=== PATIENT | male | born 1950 | race Two or more races ===

== ENCOUNTER 2021-09-11 03:58 | Inpatient (IN) | payer OTHER, MEDICAID ==
[~2021-09-11] VITALS: Ht 165.1 cm; Wt 65.0 kg
[2021-09-11] MEDS ORDERED: ONDANSETRON HCL 4 MG/2 ML VIAL IV ONE ×2 (04:45→08:00)
[2021-09-11] MEDS ORDERED: MORPHINE SULFATE INJECTION 2 MG/ML SYRG IV ONE (04:45)
[2021-09-11] MEDS ORDERED: cefTRIAXone 1GM/50ML D5W 50 ML IV ONE (08:00)
[2021-09-11] MEDS ORDERED: metroNIDAZOLE 500MG/100ML 100 ML IV ONE (08:00)
[2021-09-11] MEDS ORDERED: SODIUM CHLORIDE 0.9% 1,000 ML IV ONE ×2 (08:00)
[2021-09-11] MEDS ORDERED: HYDROmorphone HCL 2 MG/ML VL IV ONE (08:00)
[2021-09-11 08:06] LABS: Eosinophils # (auto) 0 10 ^3/uL (0-0.8); Monocytes # (auto) 1.4 10 ^3/uL (0-1.3); Nucleated Red Blood Cells % 0.1 %; Red Cell Distribution Width 14.3 % (11.8-14.3); White Blood Cell 20.1 10^3/uL (4.4-10.8)
[2021-09-11 08:08] LABS: Basophils # (auto) 0 10 ^3/uL (0-0.2); Basophils % (auto) 0.2 % (0.0-2.0); Eosinophils % (auto) 0.1 % (0.0-7.0); Hematocrit 54.2 % (41.0-53.0); Hemoglobin 18.1 g/dL (13.5-17.5); Lymphocytes # (auto) 0.9 10 ^3/uL (0.4-5.4); Lymphocytes % (auto) 4.3 % (10.0-50.0); Mean Corpuscular Hemoglobin 30.6 pg (28.0-32.0); Mean Corpuscular Hgb Conc. 33.4 g/dL (32.0-36.0); Mean Corpuscular Volume 91.5 fL (80.0-100.0); Monocytes % (auto) 6.9 % (0.0-12.0); Neutrophils # (auto) 17.8 10 ^3/uL (1.6-8.6); Neutrophils % (auto) 88.5 % (37.0-80.0); Red Blood Cells 5.92 10^6/uL (4.5-5.90)
[2021-09-11 08:18] LABS: Albumin 3.5 g/dL (3.4-5.0); Magnesium 1.9 mg/dL (1.6-2.6); Potassium 4.4 mmol/L (3.5-5.1)
[2021-09-11 08:20] LABS: Bilirubin, Total 0.8 mg/dL (0.2-1.0); Total Protein 7.7 g/dL (6.4-8.2)
[2021-09-11 08:55] LABS: BUN/Creatinine Ratio 20.5
[2021-09-11] MEDS ORDERED: MORPHINE SULFATE INJECTION 2 MG/ML SYRG IV PRN ×2 (09:30→10:30)
[2021-09-11] MEDS ORDERED: NITROGLYCERIN 0.4 MG SL TAB SL PRN ×2 (09:30→10:30)
[2021-09-11] MEDS ORDERED: LACTATED RINGER'S 2,000 ML IV ONE (09:30)
[2021-09-11] MEDS ORDERED: PANTOPRAZOLE 40 MG/10 ML VIAL INJ IV ONE (09:30)
[2021-09-11] MEDS ORDERED: DEXTROSE (50%) 50ML SYRG IV PRN (09:30)
[2021-09-11 09:45] LABS: Lactic Acid w/Reflex 6.5 mmol/L (0.4-2.0)
[2021-09-11] MEDS: SODIUM CHLORIDE 0.9% 1,000 ML IV SCH ×2 (09:50→22:31)
[2021-09-11] MEDS: PANTOPRAZOLE 40 MG/10 ML VIAL INJ IV SCH (10:00)
[2021-09-11] MEDS ORDERED: DOCUSATE SOD 100 MG CAP PO PRN (10:30)
[2021-09-11] MEDS ORDERED: TEMAZEPAM 15 MG CAP PO PRN (10:30)
[2021-09-11] MEDS ORDERED: ACETAMINOPHEN 325 MG TAB PO PRN (10:30)
[2021-09-11] MEDS ORDERED: MEROPENEM 1GM IVPB 100 ML IV ONE (10:30)
[2021-09-11] MEDS ORDERED: LABETALOL HCL 5 MG/ML 4ML SYRINGE IV PRN (10:30)
[2021-09-11] MEDS ORDERED: LABETALOL HCL 5 MG/ML 4ML SYRINGE IV ONE (10:30)
[2021-09-11] MEDS ORDERED: ONDANSETRON HCL 4 MG/2 ML VIAL IV PRN (10:30)
[2021-09-11] MEDS ORDERED: HYDROcodone-ACET 5/325MG TAB PO PRN (10:30)
[2021-09-11] MEDS ORDERED: hydrALAZINE HCL 20 MG/ML VL IV PRN (10:45)
[2021-09-11] MEDS: InsuLIN REG 1unit/0.01ml Soln (100units/ml) SC SCH ×2 (11:52→17:39)
[2021-09-11] MEDS: ACCU-CHEK COMFORT CURVE STRIP VI SCH ×2 (12:05→17:39)
[2021-09-11 12:26] LABS: Magnesium 2.2 mg/dL (1.6-2.6)
[2021-09-11 12:29] LABS: Phosphorus 5.6 mg/dL (2.5-4.90)
[2021-09-11] MEDS: MORPHINE SULFATE INJECTION 2 MG/ML SYRG IV PRN ×2 (15:57→22:33)
[2021-09-11 17:00] VITALS: BP 148/87
[2021-09-11] MEDS ORDERED: LEVOTAB51 PO (18:16)
[2021-09-11] MEDS ORDERED: TAMS0.4C36 PO (18:16)
[2021-09-11] MEDS ORDERED: LISI-285 PO (18:16)
[2021-09-11] MEDS ORDERED: METF-370 PO (18:16)
[2021-09-11 22:00] VITALS: BP 144/98
[2021-09-11] MEDS ORDERED: ATORVASTATIN 20 MG TAB PO SCH (22:00)
[2021-09-11] MEDS: MEROPENEM 1GM IVPB 100 ML IV SCH (22:31)
[2021-09-12] MEDS: ACCU-CHEK COMFORT CURVE STRIP VI SCH ×4 (00:33→17:54)
[2021-09-12] MEDS: InsuLIN REG 1unit/0.01ml Soln (100units/ml) SC SCH ×4 (00:34→17:54)
[2021-09-12] MEDS: MORPHINE SULFATE INJECTION 2 MG/ML SYRG IV PRN ×2 (04:34→12:33)
[2021-09-12 05:15] VITALS: BP 125/84
[2021-09-12 07:34] LABS: INR 1.1 (0.9-1.15); Partial Thromboplastin Time 29.6 sec (23.6-33.0)
[2021-09-12 07:39] LABS: Albumin 2.9 g/dL (3.4-5.0); Calcium 8.9 mg/dL (8.5-10.1); Magnesium 3.2 mg/dL (1.6-2.6); Potassium 3.9 mmol/L (3.5-5.1)
[2021-09-12 07:41] LABS: Basophils # (auto) 0 10 ^3/uL (0-0.2); Basophils % (auto) 0.1 % (0.0-2.0); Eosinophils # (auto) 0 10 ^3/uL (0-0.8); Hematocrit 51.4 % (41.0-53.0); Hemoglobin 17.4 g/dL (13.5-17.5); Lymphocytes # (auto) 0.9 10 ^3/uL (0.4-5.4); Lymphocytes % (auto) 4.1 % (10.0-50.0); Mean Corpuscular Hemoglobin 30.8 pg (28.0-32.0); Mean Corpuscular Hgb Conc. 33.9 g/dL (32.0-36.0); Mean Corpuscular Volume 90.8 fL (80.0-100.0); Monocytes # (auto) 1.6 10 ^3/uL (0-1.3); Monocytes % (auto) 7.4 % (0.0-12.0); Neutrophils # (auto) 18.9 10 ^3/uL (1.6-8.6); Neutrophils % (auto) 88.4 % (37.0-80.0); Nucleated Red Blood Cells % 0.1 %; Red Blood Cells 5.66 10^6/uL (4.5-5.90); Red Cell Distribution Width 14.3 % (11.8-14.3); White Blood Cell 21.3 10^3/uL (4.4-10.8)
[2021-09-12 07:51] LABS: BUN/Creatinine Ratio 30.5; Bilirubin, Total 1.1 mg/dL (0.2-1.0); Phosphorus 2.4 mg/dL (2.5-4.90); Total Protein 6.9 g/dL (6.4-8.2); Uric Acid 8.2 mg/dL (3.5-7.2)
[2021-09-12 09:00] VITALS: BP 140/90
[2021-09-12] MEDS: ENOXAPARIN SOD 30 MG/0.3 ML SYRINGE SC SCH (10:06)
[2021-09-12] MEDS: PANTOPRAZOLE 40 MG/10 ML VIAL INJ IV SCH (10:06)
[2021-09-12] MEDS: MEROPENEM 1GM IVPB 100 ML IV SCH (10:40)
[2021-09-12] MEDS: SODIUM CHLORIDE 0.9% 1,000 ML IV SCH ×2 (12:10→17:15)
[2021-09-12 13:00] VITALS: BP 139/89
[2021-09-12 14:34] LABS: Urine Bacteria NONE SEEN /hpf (None Seen); Urine Blood TRACE /uL (Negative); Urine Specific Gravity 1.026 (1.001-1.035); Urine WBC 2 /hpf (0 - 3)
[2021-09-12 14:57] LABS: Alcohol, Urine < 3.0 mg/dL (0-10); Amphetamine Screen, Urine NEGATIVE (NEGATIVE); Barbiturate Scree,Urine NEGATIVE (NEGATIVE); Benzodiazephine Screen, Urine NEGATIVE (NEGATIVE); Cannabinoid Screen, Urine NEGATIVE (NEGATIVE); Cocaine Screen, Urine NEGATIVE (NEGATIVE); Opiate Scree,Urine POSITIVE (NEGATIVE); Phencyclidine Screen, Urine NEGATIVE (NEGATIVE)
[2021-09-12 17:00] VITALS: BP 151/92
[2021-09-12 22:00] VITALS: BP 158/94
[2021-09-12] MEDS: metroNIDAZOLE 500MG/100ML 100 ML IV SCH (22:10)
[2021-09-13] MEDS: SODIUM CHLORIDE 0.9% 1,000 ML IV SCH ×3 (01:35→11:25)
[2021-09-13] MEDS: InsuLIN REG 1unit/0.01ml Soln (100units/ml) SC SCH ×4 (02:24→17:35)
[2021-09-13 05:00] VITALS: BP 153/109
[2021-09-13] MEDS: ACCU-CHEK COMFORT CURVE STRIP VI SCH ×4 (06:00→17:35)
[2021-09-13] MEDS: metroNIDAZOLE 500MG/100ML 100 ML IV SCH ×3 (07:06→22:23)
[2021-09-13 09:00] VITALS: BP 149/97
[2021-09-13] MEDS: PANTOPRAZOLE 40 MG/10 ML VIAL INJ IV SCH (10:06)
[2021-09-13] MEDS: levoFLOXacin 500MG 100 ML IV SCH (10:06)
[2021-09-13] MEDS: ENOXAPARIN SOD 30 MG/0.3 ML SYRINGE SC SCH (10:07)
[2021-09-13 11:03] LABS: Basophils # (auto) 0 10 ^3/uL (0-0.2); Basophils % (auto) 0.2 % (0.0-2.0); Eosinophils # (auto) 0 10 ^3/uL (0-0.8); Hematocrit 41.2 % (41.0-53.0); Hemoglobin 13.9 g/dL (13.5-17.5); Lymphocytes # (auto) 0.9 10 ^3/uL (0.4-5.4); Mean Corpuscular Hemoglobin 30.7 pg (28.0-32.0); Mean Corpuscular Hgb Conc. 33.9 g/dL (32.0-36.0); Mean Corpuscular Volume 90.6 fL (80.0-100.0); Monocytes # (auto) 1.3 10 ^3/uL (0-1.3); Monocytes % (auto) 8.5 % (0.0-12.0); Neutrophils # (auto) 12.8 10 ^3/uL (1.6-8.6); Neutrophils % (auto) 85.3 % (37.0-80.0); Red Blood Cells 4.55 10^6/uL (4.5-5.90); Red Cell Distribution Width 14.5 % (11.8-14.3)
[2021-09-13 13:00] VITALS: BP 150/91
[2021-09-13 16:44] VITALS: BP 143/92
[2021-09-13 22:00] VITALS: BP 156/87
[2021-09-14] MEDS: InsuLIN REG 1unit/0.01ml Soln (100units/ml) SC SCH ×5 (00:53→23:41)
[2021-09-14] MEDS: ACCU-CHEK COMFORT CURVE STRIP VI SCH ×5 (01:02→23:38)
[2021-09-14] MEDS: SODIUM CHLORIDE 0.9% 1,000 ML IV SCH ×2 (02:35→06:43)
[2021-09-14] MEDS: metroNIDAZOLE 500MG/100ML 100 ML IV SCH ×3 (06:00→22:03)
[2021-09-14] MEDS ORDERED: LABETALOL HCL 5 MG/ML ML 20ML VIAL IV ONE (08:45)
[2021-09-14 09:06] VITALS: BP 152/85
[2021-09-14] MEDS: levoFLOXacin 500MG 100 ML IV SCH (09:38)
[2021-09-14] MEDS: ENOXAPARIN SOD 30 MG/0.3 ML SYRINGE SC SCH (09:38)
[2021-09-14] MEDS: PANTOPRAZOLE 40 MG/10 ML VIAL INJ IV SCH (09:38)
[2021-09-14 11:59] LABS: Basophils # (auto) 0 10 ^3/uL (0-0.2); Basophils % (auto) 0.1 % (0.0-2.0); Eosinophils # (auto) 0 10 ^3/uL (0-0.8); Eosinophils % (auto) 0.1 % (0.0-7.0); Hematocrit 37.3 % (41.0-53.0); Hemoglobin 12.8 g/dL (13.5-17.5); Lymphocytes # (auto) 0.7 10 ^3/uL (0.4-5.4); Lymphocytes % (auto) 5.5 % (10.0-50.0); Mean Corpuscular Hemoglobin 30.9 pg (28.0-32.0); Mean Corpuscular Hgb Conc. 34.3 g/dL (32.0-36.0); Monocytes % (auto) 7.7 % (0.0-12.0); Neutrophils # (auto) 10.8 10 ^3/uL (1.6-8.6); Neutrophils % (auto) 86.6 % (37.0-80.0); Red Blood Cells 4.14 10^6/uL (4.5-5.90); Red Cell Distribution Width 14.4 % (11.8-14.3); White Blood Cell 12.5 10^3/uL (4.4-10.8)
[2021-09-14 12:32] LABS: Albumin 2.2 g/dL (3.4-5.0); Calcium 8.2 mg/dL (8.5-10.1); Potassium 3.5 mmol/L (3.5-5.1)
[2021-09-14 12:36] LABS: BUN/Creatinine Ratio 22.6; Bilirubin, Total 0.9 mg/dL (0.2-1.0); Total Protein 5.7 g/dL (6.4-8.2)
[2021-09-14 12:41] LABS: Amylase 182 U/L (25-115); Lipase 232 U/L (73-393)
[2021-09-14 13:00] VITALS: BP 135/77
[2021-09-14 17:20] VITALS: BP 144/76
[2021-09-14 22:00] VITALS: BP 137/72
[2021-09-14] MEDS: LABETALOL HCL 200 MG TAB PO SCH (22:04)
[2021-09-14] MEDS: INSULIN LANTUS (GLARGINE) 1 /0.01ml (100units/ml) SC SCH (22:05)
[2021-09-15 05:00] VITALS: BP 131/69
[2021-09-15] MEDS: ACCU-CHEK COMFORT CURVE STRIP VI SCH ×3 (05:54→18:00)
[2021-09-15] MEDS: metroNIDAZOLE 500MG/100ML 100 ML IV SCH ×3 (06:06→22:28)
[2021-09-15] MEDS: InsuLIN REG 1unit/0.01ml Soln (100units/ml) SC SCH ×3 (06:31→18:00)
[2021-09-15 09:00] VITALS: BP_SYST 118; BP_SYST 124; BP_DIAS 73; BP_DIAS 78
[2021-09-15] MEDS: LABETALOL HCL 200 MG TAB PO SCH ×2 (09:50→22:30)
[2021-09-15] MEDS: levoFLOXacin 500MG 100 ML IV SCH (09:50)
[2021-09-15] MEDS: PANTOPRAZOLE 40 MG/10 ML VIAL INJ IV SCH (09:50)
[2021-09-15] MEDS: LISINOPRIL 5 MG TAB PO SCH (09:50)
[2021-09-15] MEDS: ENOXAPARIN SOD 30 MG/0.3 ML SYRINGE SC SCH (09:51)
[2021-09-15] MEDS: INSULIN LANTUS (GLARGINE) 1 /0.01ml (100units/ml) SC SCH ×2 (09:52→22:42)
[2021-09-15 13:00] VITALS: BP 129/60
[2021-09-15 17:00] VITALS: BP 132/81
[2021-09-16] MEDS: ACCU-CHEK COMFORT CURVE STRIP VI SCH ×5 (00:21→23:53)
[2021-09-16 05:54] VITALS: BP 140/69
[2021-09-16] MEDS: metroNIDAZOLE 500MG/100ML 100 ML IV SCH ×3 (05:58→21:18)
[2021-09-16] MEDS: InsuLIN REG 1unit/0.01ml Soln (100units/ml) SC SCH ×5 (05:58→23:53)
[2021-09-16 06:14] LABS: Amylase 146 U/L (25-115); Lipase 216 U/L (73-393)
[2021-09-16 09:00] VITALS: BP 128/91
[2021-09-16] MEDS ORDERED: ENOXAPARIN SOD 40 MG/0.4 ML SYRINGE SC SCH (10:00)
[2021-09-16] MEDS: LISINOPRIL 5 MG TAB PO SCH (10:20)
[2021-09-16] MEDS: levoFLOXacin 500MG 100 ML IV SCH (10:20)
[2021-09-16] MEDS: LABETALOL HCL 200 MG TAB PO SCH (10:21)
[2021-09-16] MEDS: INSULIN LANTUS (GLARGINE) 1 /0.01ml (100units/ml) SC SCH (10:23)
[2021-09-16] MEDS: PANTOPRAZOLE 40 MG/10 ML VIAL INJ IV SCH ×2 (10:25→21:18)
[2021-09-16 11:08] LABS: Basophils # (auto) 0 10 ^3/uL (0-0.2); Basophils % (auto) 0.2 % (0.0-2.0); Eosinophils # (auto) 0.3 10 ^3/uL (0-0.8); Hematocrit 36.4 % (41.0-53.0); Hemoglobin 12.2 g/dL (13.5-17.5); Lymphocytes # (auto) 1.3 10 ^3/uL (0.4-5.4); Lymphocytes % (auto) 8.7 % (10.0-50.0); Mean Corpuscular Hemoglobin 30.5 pg (28.0-32.0); Mean Corpuscular Hgb Conc. 33.5 g/dL (32.0-36.0); Mean Corpuscular Volume 91.2 fL (80.0-100.0); Monocytes # (auto) 2.1 10 ^3/uL (0-1.3); Monocytes % (auto) 13.7 % (0.0-12.0); Neutrophils # (auto) 11.4 10 ^3/uL (1.6-8.6); Neutrophils % (auto) 75.4 % (37.0-80.0); Nucleated Red Blood Cells % 0.3 %; Red Blood Cells 3.99 10^6/uL (4.5-5.90); Red Cell Distribution Width 14.1 % (11.8-14.3); White Blood Cell 15.1 10^3/uL (4.4-10.8)
[2021-09-16 11:49] LABS: BUN/Creatinine Ratio 20.7; Calcium 8.3 mg/dL (8.5-10.1)
[2021-09-16 11:54] LABS: Potassium 3.3 mmol/L (3.5-5.1)
[2021-09-16 13:00] VITALS: BP 140/76
[2021-09-16 17:00] VITALS: BP 136/73
[2021-09-16 20:00] VITALS: BP 136/71
[2021-09-16] MEDS ORDERED: ALBUTEROL SULF 2.5 MG/0.5ML(0.5%) NEB SOLN NEB PRN (20:45)
[2021-09-16] MEDS ORDERED: IPRATROPIUM BROM 0.5 MG/2.5ML INH SOL NEB PRN (20:45)
[2021-09-16] MEDS: SUCRALFATE 1 GM/10 ML ORAL SUSP PO SCH (21:18)
[2021-09-17 01:01] LABS: Hematocrit 35.2 % (41.0-53.0); Hemoglobin 11.8 g/dL (13.5-17.5)
[2021-09-17] MEDS: metroNIDAZOLE 500MG/100ML 100 ML IV SCH ×3 (05:01→21:28)
[2021-09-17 05:16] VITALS: BP 145/74
[2021-09-17] MEDS: ACCU-CHEK COMFORT CURVE STRIP VI SCH ×4 (05:27→23:39)
[2021-09-17] MEDS: InsuLIN REG 1unit/0.01ml Soln (100units/ml) SC SCH ×4 (05:28→23:45)
[2021-09-17 06:02] LABS: Hematocrit 34.2 % (41.0-53.0); Hemoglobin 11.7 g/dL (13.5-17.5)
[2021-09-17 06:25] LABS: Potassium 3.5 mmol/L (3.5-5.1)
[2021-09-17 06:27] LABS: BUN/Creatinine Ratio 20.3
[2021-09-17] MEDS: SUCRALFATE 1 GM/10 ML ORAL SUSP PO SCH ×4 (06:31→21:28)
[2021-09-17 08:00] VITALS: BP 136/72
[2021-09-17] MEDS: levoFLOXacin 500MG 100 ML IV SCH (08:28)
[2021-09-17] MEDS: POTASSIUM EFFERVESENT TAB 25 MEQ PO SCH (08:29)
[2021-09-17] MEDS: PANTOPRAZOLE 40 MG/10 ML VIAL INJ IV SCH ×2 (08:29→21:29)
[2021-09-17] MEDS: LISINOPRIL 5 MG TAB PO SCH (08:34)
[2021-09-17 12:00] VITALS: BP 128/68
[2021-09-17 13:56] LABS: Hemoglobin 12.6 g/dL (13.5-17.5)
[2021-09-17] MEDS ORDERED: FUROSEMIDE 20 MG/2 ML VIAL IV ONE (14:45)
[2021-09-17 20:00] VITALS: BP 139/72
[2021-09-18 02:34] LABS: INR 1.18 (0.9-1.15); Partial Thromboplastin Time 30.7 sec (23.6-33.0)
[2021-09-18 02:40] LABS: Albumin 2.2 g/dL (3.4-5.0); Calcium 8.2 mg/dL (8.5-10.1); Potassium 3.7 mmol/L (3.5-5.1)
[2021-09-18 02:44] LABS: Bilirubin, Total 0.6 mg/dL (0.2-1.0); Total Protein 5.8 g/dL (6.4-8.2)
[2021-09-18 05:02] VITALS: BP 150/77
[2021-09-18] MEDS: metroNIDAZOLE 500MG/100ML 100 ML IV SCH (05:20)
[2021-09-18] MEDS: ACCU-CHEK COMFORT CURVE STRIP VI SCH ×3 (05:23→17:33)
[2021-09-18] MEDS: SUCRALFATE 1 GM/10 ML ORAL SUSP PO SCH ×4 (05:23→21:18)
[2021-09-18] MEDS: InsuLIN REG 1unit/0.01ml Soln (100units/ml) SC SCH ×3 (05:23→17:42)
[2021-09-18 05:41] LABS: BUN/Creatinine Ratio 15.4; Calcium 8.1 mg/dL (8.5-10.1); Potassium 3.6 mmol/L (3.5-5.1)
[2021-09-18 08:00] VITALS: BP 150/71
[2021-09-18] MEDS ORDERED: LIDOCAINE VISCOUS 2% 15ML UD ONE (08:10)
[2021-09-18] MEDS ORDERED: SODIUM CHLORIDE LOCK 10 ML ONE (08:10)
[2021-09-18] MEDS ORDERED: diphenhdrAMINE HCL 50 MG/1 ML VL ONE (08:11)
[2021-09-18] MEDS ORDERED: fentaNYL CITRATE 100 MCG/2 ML VL ONE (08:11)
[2021-09-18] MEDS ORDERED: MIDAZOLAM HCL 5 MG/ML-1ML VIAL ONE (08:11)
[2021-09-18] MEDS: PANTOPRAZOLE 40 MG/10 ML VIAL INJ IV SCH ×2 (08:22→21:18)
[2021-09-18] MEDS: LISINOPRIL 5 MG TAB PO SCH (08:22)
[2021-09-18] MEDS: POTASSIUM EFFERVESENT TAB 25 MEQ PO SCH (08:22)
[2021-09-18] MEDS: levoFLOXacin 500MG 100 ML IV SCH (08:23)
[2021-09-18 12:00] VITALS: BP 132/76
[2021-09-18] MEDS: FLUCONAZOLE 200MG/100ML 100 ML IV SCH ×3 (14:03→17:30)
[2021-09-18] MEDS: NYSTATIN (MOUTH-THROAT) 500,000 UNITS/5 ML SUSP MT SCH ×3 (14:03→21:19)
[2021-09-18 16:00] VITALS: BP 136/75
[2021-09-18] MEDS ORDERED: IOHEXOL 350 MG/ML 100ML IJ ONE (16:43)
[2021-09-18 22:04] VITALS: BP 106/70
[2021-09-19] MEDS: ACCU-CHEK COMFORT CURVE STRIP VI SCH ×4 (00:01→17:38)
[2021-09-19] MEDS: InsuLIN REG 1unit/0.01ml Soln (100units/ml) SC SCH ×4 (00:03→17:49)
[2021-09-19 05:00] VITALS: BP 109/68
[2021-09-19] MEDS: NYSTATIN (MOUTH-THROAT) 500,000 UNITS/5 ML SUSP MT SCH ×4 (05:41→22:00)
[2021-09-19] MEDS: SUCRALFATE 1 GM/10 ML ORAL SUSP PO SCH ×4 (05:41→22:00)
[2021-09-19 07:10] LABS: BUN/Creatinine Ratio 11.1; Calcium 8.2 mg/dL (8.5-10.1); Potassium 3.8 mmol/L (3.5-5.1)
[2021-09-19 09:00] VITALS: BP 122/82
[2021-09-19] MEDS ORDERED: SODIUM CHLORIDE 0.9% 1,000 ML IV ONE (09:00)
[2021-09-19] MEDS: PANTOPRAZOLE 40 MG/10 ML VIAL INJ IV SCH ×2 (09:53→22:00)
[2021-09-19] MEDS: LISINOPRIL 5 MG TAB PO SCH (09:54)
[2021-09-19] MEDS ORDERED: GADOTERATE MEG 10 MMOL/20ml INJ (0.5MMOL/ml) IV ONE (09:57)
[2021-09-19 12:36] VITALS: BP 138/84
[2021-09-19] MEDS ORDERED: PPN PER PHARMACY 0 ML IV SCH (14:00)
[2021-09-19 14:57] LABS: Albumin 2.3 g/dL (3.4-5.0); Bilirubin, Direct 0.2 mg/dL (0-0.2)
[2021-09-19 14:59] LABS: Bilirubin, Total 0.5 mg/dL (0.2-1.0); Total Protein 6.5 g/dL (6.4-8.2)
[2021-09-19 17:01] VITALS: BP 125/60
[2021-09-19] MEDS ORDERED: AMINO ACID INFUSION IN D10W 1,000 ML IV NR (20:00)
[2021-09-19 22:00] VITALS: BP 137/71
[2021-09-20] MEDS ORDERED: DEXTROSE (50%) 50ML SYRG IV SCH
[2021-09-20 05:00] VITALS: BP 123/71
[2021-09-20] MEDS: ACCU-CHEK COMFORT CURVE STRIP VI SCH ×3 (06:00→13:04)
[2021-09-20] MEDS: NYSTATIN (MOUTH-THROAT) 500,000 UNITS/5 ML SUSP MT SCH (06:00)
[2021-09-20] MEDS: InsuLIN REG 1unit/0.01ml Soln (100units/ml) SC SCH ×3 (06:00→12:50)
[2021-09-20] MEDS: SUCRALFATE 1 GM/10 ML ORAL SUSP PO SCH (07:00)
[2021-09-20 07:23] LABS: Calcium 8.4 mg/dL (8.5-10.1); Potassium 3.7 mmol/L (3.5-5.1)
[2021-09-20 07:29] LABS: Albumin 2.3 g/dL (3.4-5.0); BUN/Creatinine Ratio 16.4; Bilirubin, Total 0.5 mg/dL (0.2-1.0); Phosphorus 3.7 mg/dL (2.5-4.90); Pre Albumin 11.4 mg/dL (20.0-40.0); Total Protein 6.4 g/dL (6.4-8.2)
[2021-09-20 09:00] VITALS: BP 123/72
[2021-09-20] MEDS: FLUCONAZOLE 200MG/100ML 100 ML IV SCH (10:40)
[2021-09-20] MEDS: PANTOPRAZOLE 40 MG/10 ML VIAL INJ IV SCH (10:40)
[2021-09-20] MEDS: LISINOPRIL 5 MG TAB PO SCH (10:40)
[2021-09-20 12:44] VITALS: BP 121/75
[2021-09-20] MEDS ORDERED: PPN PER PHARMACY IV NR ×7 (20:00)
== END 2021-09-20 14:39 | disposition left against medical advice (07) | DRG 871 ==
LOC: ER 04:03 → TELE 09:16 → TELE-WESTW 16:05
PROVIDERS: ADMIT Hospitalist; ATTEND Internal Medicine
PROC: 0D9670Z Drainage of Stomach with Drainage Device, Via Natural or Artificial Opening (ICD-10-PCS; 2021-09-12)
PROC: 0DB68ZX Excision of Stomach, Via Natural or Artificial Opening Endoscopic, Diagnostic (ICD-10-PCS; 2021-09-18)
PROC: 0DB58ZX Excision of Esophagus, Via Natural or Artificial Opening Endoscopic, Diagnostic (ICD-10-PCS; 2021-09-18)
PROC: 0DB98ZX Excision of Duodenum, Via Natural or Artificial Opening Endoscopic, Diagnostic (ICD-10-PCS; principal; 2021-09-18 10:47)
DX: A41.9 Sepsis, unspecified organism (principal); K85.91 Acute pancreatitis with uninfected necrosis, unspecified; N17.0 Acute kidney failure with tubular necrosis; K56.7 Ileus, unspecified; B37.81 Candidal esophagitis; J90 Pleural effusion, not elsewhere classified; K22.10 Ulcer of esophagus without bleeding; K80.00 Calculus of gallbladder with acute cholecystitis without obstruction; R18.8 Other ascites; I16.0 Hypertensive urgency; K29.70 Gastritis, unspecified, without bleeding; E11.22 Type 2 diabetes mellitus with diabetic chronic kidney disease; I12.9 Hypertensive chronic kidney disease with stage 1 through stage 4 chronic kidney disease, or unspecified chronic kidney disease; K44.9 Diaphragmatic hernia without obstruction or gangrene; N40.0 Benign prostatic hyperplasia without lower urinary tract symptoms; Z20.822 Contact with and (suspected) exposure to COVID-19; K31.9 Disease of stomach and duodenum, unspecified; Z53.29 Procedure and treatment not carried out because of patient's decision for other reasons; K21.9 Gastro-esophageal reflux disease without esophagitis; N18.31 Chronic kidney disease, stage 3a; D75.1 Secondary polycythemia; K75.81 Nonalcoholic steatohepatitis (NASH)
CPT/HCPCS: 36415; 43239; 71045; 71275; 74176; 74183; 76705; 78226; 80048; 80053; 80061; 80076; 80307; 81001; 82040; 82150; 82270; 82962; 83036; 83605; 83690; 83735; 83880; 84100; 84443; 84478; 84484; 84550; 85014; 85018; 85025; 85048; 85379; 85610; 85730; 86703; 86803; 86850; 86900; 86901; 87040; 87340; 87426; 93005; 93970; 96361; 96374; 96375; 96376; C9113; G0378; J0696; J1450; J1815; J1956; J2185; J2250; J2405; J3490; J7131